=== PATIENT | male | born 2000 | race Native Hawaiian/Other Pacific Islander ===

== ENCOUNTER 2023-02-10 09:14 | Outpatient (AMB) | payer OTHER, SELFPAY ==
--- NOTE | 2023-02-10 09:36 | AM.OFFWIN_ITS ---
Intake Vital Signs 02/10/23 09:38 BP 120/80 Blood Pressure Location Lt brachial Position Sitting Pulse 76 Pulse Source Pulse Oximeter Temp 97.5 F Temp Source Temporal Artery Scan Pulse Oximetry (%) 97 Oxygen Delivery Method Room Air Intake Visit Reasons: EP, Labs (titer) Intake Note: Patient here because he hasnt been to a doctor in awhile and would like to get some basic labs done. Patient Tobacco Use Status: Never used Tobacco Allergies No Known Allergies Allergy (Unverified 02/10/23 09:57) Medication List - Last Reconciled 02/10/23 by Dave Persaud MD No Known Home Meds Do you need a note to return to daycare/school/sports/work: No HPI EP, Labs (titer) HPI Details 22-year-old male presents to the office for a sick visit. 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 He wants to check himself for diabetes as that would disqualify him from flying school. He is not able to wait for an appointment with his primary care physician, it has been scheduled in June. He is requesting routine blood work to screen for diabetes. [facility] Social History Patient Tobacco Use Status: Never used Tobacco Physical Exam Vital Signs: Last Vital Signs Temp 97.5 F 02/10/23 09:38 Pulse 76 02/10/23 09:38 BP 120/80 02/10/23 09:38 Pulse Ox 97 02/10/23 09:38 Oxygen Delivery Method Room Air 02/10/23 09:38 Const General: cooperative and healthy appearing Nutritional Appearance: well nourished Orientation/consciousness: patient oriented x3 Limitations: no limitations HEENT Head: Yes normal to inspection Eyes General: appearance normal, both eyes and all related structures Neck Neck: Yes normal visual inspection Chest Chest palpation & inspection: normal palpation of entire chest wall Resp Effort & Inspection: normal respiratory effort Neuro General: patient oriented x3 Assessment & Plan Assessment & Plan (1) Familial hypercholesterolemia: Code(s): E78.01 - Familial hypercholesterolemia Plan: Blood work has been ordered. Will call with results. Orders: Orders Basic Metabolic Panel Today E78.01 - Familial hypercholesterolemia Lipid Panel Today E78.01 - Familial hypercholesterolemia Liver Panel Today E78.01 - Familial hypercholesterolemia Thyroid Stimulating Hormone Today E78.01 - Familial hypercholesterolemia Complete Blood Count no Diff Today E78.01 - Familial hypercholesterolemia UA and rflx microscopic Today E78.01 - Familial hypercholesterolemia Coding Level of Care Code New Pt Level 3 (00762) Diagnoses Familial hypercholesterolemia E78.01
[2023-02-10 09:38] VITALS: BP 120/80; PULSE 76; TEMP 36.4; O2SAT 97
== END 2023-02-10 09:56 | disposition home or self-care (01) ==
PROVIDERS: PCP Nurse Practitioner Family; Visit Provider Internal Medicine
DX: E78.01 Familial hypercholesterolemia (principal)
CPT/HCPCS: 99203

== ENCOUNTER 2023-02-10 09:54 | Outpatient (REF) | payer OTHER, SELFPAY ==
[2023-02-10 14:45] LABS: Hematocrit 47.5 % (42.0-52.0); Hemoglobin 14.8 g/dl (14.0-18.0); Mean Corpuscular HGB Conc 31.2 g/dl (31.0-36.0); Mean Corpuscular Hemoglobin 26.1 pg (27.0-33.0); Mean Corpuscular Volume 83.9 fL (80.0-98.0); Mean Platelet Volume 10.3 fL (9.4-12.4); Platelet Count 307 X10*3/uL (160-400); Red Blood Count 5.66 X10*6/uL (4.60-5.80); Red Cell Distribution Width 13.8 % (11.0-16.0); White Blood Count 7.5 X10*3/uL (4.8-10.8)
[2023-02-10 15:30] LABS: Appearance Urine Clear; Color Urine Yellow; Glucose Urine UA Negative (Negative); Leukocyte Esterase Urine Negative (Negative); Nitrite Urine Negative (Negative); Urine Blood Negative (Negative); Urine Ketones Negative (Negative); Urine Protein Negative (Neg-Trace)
[2023-02-10 15:31] LABS: Alanine Aminotransferase 18 U/L (0-40); Albumin Level 4.4 g/dL (3.5-5.0); Alkaline Phosphatase 59 U/L (39-117); Anion Gap 10 (12-20); Aspartate Amino Transferase 18 U/L (5-37); Bilirubin Direct 0.3 mg/dL (0.0-0.5); Bilirubin Total 0.8 mg/dL (0.0-1.0); Blood Urea Nitrogen 13 mg/dL (9-16); Calcium 9.8 mg/dL (8.4-10.2); Carbon Dioxide 27 mmol/L (22-29); Chloride 105 mmol/L (96-108); Cholesterol 242 mg/dL; Estimated Glomerular Filt Rate > 60; Glucose Random 74 mg/dL (60-115); HDL Cholesterol 37 mg/dL; LDL Cholesterol Calculated 187 mg/dl; Potassium 4.3 mmol/L (3.3-5.1); Sodium 138 mmol/L (135-145); Thyroid Stimulating Hormone 1.04 uIU/mL (0.32-4.0); Total Protein 8.1 g/dL (6.5-8.0); Triglycerides 94 mg/dL
== END 2023-02-10 09:55 | disposition home or self-care (01) ==
LOC: HO.HMGCLDS 09:54
PROVIDERS: PCP Nurse Practitioner Family; Visit Provider Internal Medicine
DX: E78.01 Familial hypercholesterolemia (principal)
CPT/HCPCS: 36415; 80048; 80061; 80076; 81003; 84443; 85027

== ENCOUNTER 2023-07-10 14:19 | Outpatient (AMB) | payer OTHER, SELFPAY ==
--- NOTE | 2023-07-10 14:34 | A.OFFPC_ITS ---
Vital Signs 07/10/23 14:36 Height 5 ft 8 in Weight 209 lb BMI 31.8 BP 130/86 Blood Pressure Location Rt brachial Position Sitting Pulse 85 Pulse Source Pulse Oximeter Pulse Oximetry (%) 98 Oxygen Delivery Method Room Air Intake Visit Reasons: New patient-Requesting physical for school Allergies No Known Allergies Allergy (Unverified 07/10/23 14:36) Dental Screening Dental Screen Date: 07/10/23 Did you have a dental visit in the last 12 months?: No Did you have a dental problem in the last 6 months where you did not have access to dental care?: No Was dental information given to patient?: Yes HPI New patient-Requesting physical for school HPI Details New pt is here for a PE. Will order labs. [facility] Family History Other Family history of mental disorder Social History Housing: House Patient Tobacco Use Status: Never used Tobacco e-Cigarette/Vaping Use: Never Used service: No Current occupational status: employed Current occupational exposures/hazards: No Cognitive needs: No Hearing needs: No Vision needs: No Questionnaire PHQ-9 Over the last 2 weeks, how often have you been bothered by any of the following problems? 1. Little interest or pleasure in doing things: not at all 2. Feeling down, depressed, or hopeless: not at all 3. Trouble falling or staying asleep, or sleeping too much: not at all 4. Feeling tired or having little energy: not at all 5. Poor appetite or overeating: not at all 6. Feeling bad about yourself - or that you are a failure or have let yourself or your family down: several days 7. Trouble concentrating on things, such as reading the newspaper or watching television: not at all 8. Moving or speaking so slowly that other people could have noticed. Or the opposite - being so fidgety or restless that you have been moving around a lot more than usual: not at all 9. Thoughts that you would be better off or of hurting yourself in some way: not at all Total score: 1 Depression Screening Interpretation: Negative Depression Screening Done: Yes 13464 - PHQ-9 Billing: Yes Source: Developed by Drs. Deandre Ordoñez, Marie BRonald Mcallister and colleagues, with an educational italo from [employer]. Thrive Questionnaire Date Thrive assessed: 07/10/23 I am a: Patient What is your living situation today?: I have a steady place to live Within the past 12 months, did the food you bought not last and you didn't have the money to get more?: Never true Within the past 12 months, did you worry whether your food would run out before you got money to buy more?: Never true Do you have trouble paying for medicines?: No Do you have trouble getting transportation to medical appointments?: No Do you have trouble paying your heating and electricity bill?: No Do you have trouble taking care of your child, family member or friend?: No Do you have trouble with day-to-day activities such as bathing, preparing meals, shopping, managing finances, etc.?: No Are you currently unemployed and looking for a job?: No Are you interested in more education?: Yes Currently or been in a relationship where the following occur: no concerns reported AUDIT C Alcohol Use Questionnaire (AUDIT-C) 1. How often do you have a drink containing alcohol?: Monthly or less 2. How many drinks containing alcohol do you have on a typical day when you are drinking?: 1 or 2 3. How often do you have six or more drinks on one occasion?: Never Total Score: 1 Score Reviewed/Action Taken: No CHOCO-7 AMB Questionnaire CHOCO-7 Date CHOCO - 7 assessed: 07/10/23 Feeling nervous, anxious, or on edge: 1 = Several days Not being able to stop or control worryin = Not at all Worrying too much about different things: 0 = Not at all Trouble relaxin = Not at all Being so restless that it is hard to sit still: 0 = Not at all Becoming easily annoyed or irritable: 0 = Not at all Feeling afraid as if something awful might happen: 0 = Not at all Total CHOCO-7 score (0-4 normal; 5-9 mild; 10-14 moderate; 15-21 severe): 1 Source: Developed by Drs. Deandre Ordoñez, Ronald Medina and colleagues, with an educational italo from [employer]. CHOCO-7 Assessment Billing CHOCO-7 Assessment Tool: CHOCO-7 Assessment 62894 Review of Systems Const Denies chills and Denies fever(s) Eyes Denies blurry vision ENT Denies vertigo, Denies dizziness and Denies sore throat Card Denies chest pain at rest, Denies chest pain with activity, Denies diaphoresis, Denies dyspnea and Denies dyspnea on exertion Resp Denies cough, Denies dyspnea, Denies dyspnea on exertion and Denies wheezing GI Denies abdominal pain, Denies melena, Denies hematochezia, Denies constipation, Denies diarrhea and Denies loose stools Denies hematuria Musc Denies numbness and Denies tingling Skin/Breast Denies lesions Neuro Denies vertigo, Denies dizziness, Denies numbness and Denies tingling Psych Denies anxiety, Denies depression, Denies homicidal ideation, Denies suicidal ideation and Denies other (substance abuse) Aller/Immun Denies wheezing Physical exam (Primary Care) Vital Signs: Last Vital Signs Pulse 85 07/10/23 14:36 BP 130/86 07/10/23 14:36 Pulse Ox 98 07/10/23 14:36 Oxygen Delivery Method Room Air 07/10/23 14:36 BMI result Body Mass Index 31.8 Tobacco/Smoking Status: Tobacco use Status Patient Tobacco Use Status Never used Tobacco 07/10/23 14:35 e-Cigarette/Vaping Use Never Used 07/10/23 14:40 PHQ-9: PHQ-9 Score PHQ-9: Total score 1 07/10/23 15:43 Depression Screening Interpretation: Negative Thrive Assessment: Date of Thrive Assessment Date Thrive assessed 07/10/23 07/10/23 15:43 Currently or been in a relationship where the following occur: no concerns reported Const General: cooperative Nutritional Appearance: obese Orientation/consciousness: patient oriented x3 HENMT Head: Yes normal to inspection, Yes normocephalic and Yes atraumatic Ears: TM's normal bilaterally Eyes General: appearance normal, both eyes and all related structures Alignment and Position: alignment normal and position normal Neck Neck: Yes normal visual inspection and Yes no lymphadenopathy Thyroid: Thyroid normal Resp Effort & Inspection: normal respiratory effort Auscultation: clear to auscultation bilaterally Cardio Rate: regular rate Rhythm: regular rhythm Heart sounds: S1 normal heart sound present, S2 normal heart sound present and no murmurs GI Palpation (GI): Soft to palpation and nontender Auscultation: normal bowel sounds Male General Exam: Yes normal external exam Penis: normal penis Scrotum: scrotum normal, testes descended bilaterally and no inguinal hernias Testes: no testicular mass Skin Other: acanthosis nigricans to neck Rashes: no rashes Neuro General: patient oriented x3, moves all extremities, no focal motor deficits and deep tendon reflexes 2+ bilaterally Romberg Test: Negative Psych Appearance: grossly normal Mental Status: mental status grossly normal Speech and movement: Normal speech and movement present Affect: normal affect Attitude: cooperative Thought process: Normal thought process present Thought content: Normal thought content present Insight: Good insight present (Psych) Judgement: Good judgement present (Psych) Office Procedures Flu Questionnaire Does the patient have a severe egg allergy?: No Does the patient have severe life threatening allergies?: No Does the patient have a fever or illness today?: No Has the patient ever had Guillain-[place] Syndrome?: No Has the patient ever had any past reaction to a flu shot?: No Immunizations flu vacc [id number] 6mos up(PF) 60 mcg(15 mcgx4)/0.5 mL IM syringe Performing Provider: AMERICA Smalls Performing Location: [facility] Administered by: NELI Patel on 07/10/23 15:44 Dose Route Admin Location Dispensed Lot Number Expiration Date [employer] 0.5 mL IM Left Deltoid 0.5 mL [id number] 01/21/24 [id number] [employer] VIS Given Date VIS Provided VIS Publication Date 07/10/23 Single Vaccine 21 Eligibility Eligibility Date Funding Source Not [facility] Eligible 07/10/23 Private Assessment and Plan Assessment & Plan (1) Physical exam: Code(s): Z00.00 - Encounter for general adult medical examination without abnormal findings Plan: Labs ordered Plan The patient agreed to the use of a medical affairs manager for this encounter. Scribed for AMERICA Martinez by darian Caicedo scribe, on 07/10/2023 at 15:15 EST. Orders: Orders TSH reflex Free T4 Today Z00.00 - Encounter for general adult medical examinat ion without abnormal findings Lipid Panel Today Z00.00 - Encounter for general adult medical examination without abnormal findings Complete Blood Count Auto Diff Today Z00.00 - Encounter for general adult medical examination without abnormal findings Comprehensive [place]. Panel Fast Today Z00.00 - Encounter for general adult medical examination without abnormal findings UA CC w/rflx Micro + Cult Today Z00.00 - Encounter for general adult medical examination without abnormal findings Influenza [id number] Immunization Today Z23 - Encounter for immunization Coding Level of Care Code New Pt Prev Care 18-39yr(67239 Diagnoses Physical exam Z00.00 Additional Codes CHOCO-7 Assessment Billing - CHOCO-7 Assessment Tool: CHOCO-7 Assessment 75765 ([id number])
[2023-07-10 14:36] VITALS: BP 130/86; PULSE 85; O2SAT 98; BMI 31.8
== END 2023-07-10 15:32 | disposition home or self-care (01) ==
PROVIDERS: PCP Nurse Practitioner Family; Visit Provider Nurse Practitioner Family
DX: Z00.00 Encounter for general adult medical examination without abnormal findings (principal); Z23 Encounter for immunization
CPT/HCPCS: 90471; 90686; 99385

== ENCOUNTER 2023-07-13 10:29 | Outpatient (REF) | payer OTHER, SELFPAY ==
[2023-07-13 13:22] LABS: MANUAL DIFF FLAG NO
[2023-07-13 13:28] LABS: Appearance Urine Clear; Color Urine Yellow; Glucose Urine UA Negative (Negative); Leukocyte Esterase Urine Negative (Negative); Nitrite Urine Negative (Negative); Urine Blood Negative (Negative); Urine Ketones Negative (Negative); Urine Protein Negative (Neg-Trace)
[2023-07-13 13:37] LABS: Basophils Absolute Auto 0.1 X10*3/uL (0.0-0.2); Basophils Percent Auto 0.7 % (0-2); Eosinophils Absolute Auto 0.2 X10*3/uL (0.0-0.4); Eosinophils Percent Auto 2.8 % (0-4); Hematocrit 45.9 % (42.0-52.0); Hemoglobin 14.5 g/dl (14.0-18.0); Imm Gran Abs Auto 0.03 X10*3/uL (0.00-0.03); Imm Gran Pct Auto 0.3 % (0.0-0.4); Lymphocytes Absolute Auto 2.9 X10*3/uL (1.2-4.9); Lymphocytes Percent Auto 33.3 % (20-40); Mean Corpuscular HGB Conc 31.6 g/dl (31.0-36.0); Mean Corpuscular Hemoglobin 26.8 pg (27.0-33.0); Mean Corpuscular Volume 84.7 fL (80.0-98.0); Mean Platelet Volume 10.8 fL (9.4-12.4); Monocytes Absolute Auto 0.7 X10*3/uL (0.1-1.2); Monocytes Percent Auto 7.6 % (2-11); Neutrophils Absolute Auto 4.8 x10*3/uL (2.0-8.3); Neutrophils Percent Auto 55.3 % (45-73); Platelet Count 330 X10*3/uL (160-400); Red Blood Count 5.42 X10*6/uL (4.60-5.80); White Blood Count 8.7 X10*3/uL (4.8-10.8)
[2023-07-13 14:05] LABS: Alanine Aminotransferase 17 U/L (0-40); Albumin Level 4.3 g/dL (3.5-5.0); Alkaline Phosphatase 48 U/L (39-117); Anion Gap 13 (12-20); Aspartate Amino Transferase 18 U/L (5-37); Bilirubin Total 0.6 mg/dL (0.0-1.0); Blood Urea Nitrogen 12 mg/dL (9-16); Calcium 9.5 mg/dL (8.4-10.2); Carbon Dioxide 26 mmol/L (22-29); Chloride 104 mmol/L (96-108); Cholesterol 222 mg/dL (<200); Estimated Glomerular Filt Rate > 60; Glucose Fasting 76 mg/dL (60-99); HDL Cholesterol 44 mg/dL (>40); LDL Cholesterol Calculated 165 mg/dL (<100); Sodium 139 mmol/L (135-145); Total Protein 7.8 g/dL (6.5-8.0); Triglycerides 68 mg/dL (<150)
== END 2023-07-13 10:30 | disposition home or self-care (01) ==
LOC: HO.HMGCLDS 10:29
PROVIDERS: PCP Nurse Practitioner Family; Visit Provider Nurse Practitioner Family
DX: Z00.00 Encounter for general adult medical examination without abnormal findings (principal)
CPT/HCPCS: 36415; 80053; 80061; 81003; 84443; 85025

== ENCOUNTER 2023-08-02 09:28 | Outpatient (AMB) | payer OTHER, SELFPAY ==
[2023-08-02 10:32] VITALS: BP 120/70; PULSE 96; TEMP 36.4; O2SAT 98; BMI 32.2
--- NOTE | 2023-08-02 10:32 | MHC.OFFWIV ---
Intake Vital Signs 08/02/23 10:32 Height 5 ft 8 in Weight 212 lb BMI 32.2 BP 120/70 Blood Pressure Location Lt brachial Position Sitting Pulse 96 Pulse Source Pulse Oximeter Temp 97.6 F Temp Source Temporal Artery Scan Pulse Oximetry (%) 98 Oxygen Delivery Method Room Air Intake Visit Reasons: EP fever sore throat congestion etc [id number] Intake Note: pt is here today for sore throat congestion started 2 days ago Patient Tobacco Use Status: Never used Tobacco Allergies No Known Allergies Allergy (Verified 08/02/23 10:57) Medication List - Last Reconciled 08/02/23 by Dave Persaud MD No Known Home Meds Do you need a note to return to daycare/school/sports/work: Yes HPI EP fever sore throat congestion etc [id number] HPI Details 22-year-old male presents to the office for a sick visit. Patient is reporting symptoms of sinus congestion, postnasal drip, sore throat, wheezing and fatigue symptoms for the past few days. [facility] Family History Other Family history of mental disorder Social History Housing: House Patient Tobacco Use Status: Never used Tobacco e-Cigarette/Vaping Use: Never Used service: No Current occupational status: employed Current occupational exposures/hazards: No Cognitive needs: No Hearing needs: No Vision needs: No Physical Exam Vital Signs: Last Vital Signs Temp 97.6 F 08/02/23 10:32 Pulse 96 08/02/23 10:32 BP 120/70 08/02/23 10:32 Pulse Ox 98 08/02/23 10:32 Oxygen Delivery Method Room Air 08/02/23 10:32 BMI result Body Mass Index 32.2 Const General: cooperative and healthy appearing Nutritional Appearance: well nourished Orientation/consciousness: patient oriented x3 Limitations: no limitations HEENT Head: Yes normal to inspection Eyes General: appearance normal, both eyes and all related structures Neck Neck: Yes normal visual inspection Chest Chest palpation & inspection: normal palpation of entire chest wall Resp Effort & Inspection: normal respiratory effort Neuro General: patient oriented x3 Assessment & Plan Assessment & Plan (1) Upper respiratory tract infection: Code(s): J06.9 - Acute upper respiratory infection, unspecified Plan: Increase fluid intake. Tylenol for aches and pains. If symptoms worsen, follow-up here for a recheck. Self-limiting illness. Coding Level of Care Code Est Pt Level 3 (60116) Diagnoses Upper respiratory tract infection J06.9
== END 2023-08-02 11:54 | disposition home or self-care (01) ==
PROVIDERS: PCP Nurse Practitioner Family; Visit Provider Internal Medicine
DX: J06.9 Acute upper respiratory infection, unspecified (principal)
CPT/HCPCS: 99213

== ENCOUNTER → 2024-01-10 11:49 | Outpatient (BNVA) | payer SELFPAY | PROVIDERS: PCP Nurse Practitioner Family; Visit Provider Registered Nurse | DX: Z02.79 Encounter for issue of other medical certificate (principal) ==

== ENCOUNTER 2024-07-11 15:34 | Outpatient (AMB) | payer OTHER, SELFPAY ==
--- NOTE | 2024-07-11 16:15 | A.OFFPC_ITS ---
Vital Signs 07/11/24 16:17 Height 5 ft 8 in Weight 226 lb BMI 34.4 BP 122/74 Blood Pressure Location Rt brachial Position Sitting Pulse 73 Pulse Source Pulse Oximeter Pulse Oximetry (%) 98 Intake Visit Reasons: PE Intake Note: pt is here for PE Allergies No Known Allergies Allergy (Verified 07/11/24 16:46) Medication List - Last Reconciled 07/11/24 by AMERICA Smalls No Known Home Meds Tobacco use date assessed: 07/11/24 Dental Screening Dental Screen Date: 07/11/24 Did you have a dental visit in the last 12 months?: Yes Did you have a dental problem in the last 6 months where you did not have access to dental care?: No Was dental information given to patient?: Patient has dentist HPI HPI Comments History of Present Illness Details Pt is here for a PE. 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 1. Little interest or pleasure in doing things: not at all 2. Feeling down, depressed, or hopeless: not at all 3. Trouble falling or staying asleep, or sleeping too much: several days 4. Feeling tired or having little energy: not at all 5. Poor appetite or overeating: not at all 6. Feeling bad about yourself - or that you are a failure or have let yourself or your family down: not at all 7. Trouble concentrating on things, such as reading the newspaper or watching television: not at all 8. Moving or speaking so slowly that other people could have noticed. Or the opposite - being so fidgety or restless that you have been moving around a lot more than usual: not at all 9. Thoughts that you would be better off or of hurting yourself in some way: not at all Total score: 1 Depression Screening Interpretation: Negative Depression Screening Done: Yes 69498 - PHQ-9 Billing: Yes Source: Developed by Drs. Deandre Ordoñez, Marie Ferrara, Ronald Welch and colleagues, with an educational italo from [employer]. Thrive Questionnaire Date Thrive assessed: 07/11/24 I am a: Patient What is your living situation today?: I have a steady place to live Within the past 12 months, did the food you bought not last and you didn't have the money to get more?: Never true Within the past 12 months, did you worry whether your food would run out before you got money to buy more?: Never true Do you have trouble paying for medicines?: No Do you have trouble getting transportation to medical appointments?: No Do you have trouble paying your heating and electricity bill?: No Do you have trouble taking care of your child, family member or friend?: No Do you have trouble with day-to-day activities such as bathing, preparing meals, shopping, managing finances, etc.?: No Are you currently unemployed and looking for a job?: No Are you interested in more education?: Yes Please select the resources that you would like help with: None Currently or been in a relationship where the following occur: No concerns reported THRIVE Score: 0 AUDIT C Alcohol Use Questionnaire (AUDIT-C) 1. How often do you have a drink containing alcohol?: Monthly or less 2. How many drinks containing alcohol do you have on a typical day when you are drinking?: 1 or 2 3. How often do you have six or more drinks on one occasion?: Less than monthly Total Score: 2 Score Reviewed/Action Taken: Yes CHOCO-7 AMB Questionnaire CHOCO-7 Date CHOCO - 7 assessed: 07/11/24 Feeling nervous, anxious, or on edge: 0 = Not at all Not being able to stop or control worryin = Not at all Worrying too much about different things: 0 = Not at all Trouble relaxin = Not at all Being so restless that it is hard to sit still: 0 = Not at all Becoming easily annoyed or irritable: 1 = Several days Feeling afraid as if something awful might happen: 0 = Not at all Total CHOCO-7 score (0-4 normal; 5-9 mild; 10-14 moderate; 15-21 severe): 1 Source: Developed by Drs. Deandre Ordoñez, Marie Ferrara, Ronald Welch and colleagues, with an educational italo from [employer]. CHOCO-7 Assessment Billing CHOCO-7 Assessment Tool: CHOCO-7 Assessment 14771 Review of Systems Const Denies chills and Denies fever(s) Eyes Denies blurry vision ENT Denies vertigo, Denies dizziness and Denies sore throat Card Denies chest pain at rest, Denies chest pain with activity, Denies diaphoresis, Denies dyspnea and Denies dyspnea on exertion Resp Denies cough, Denies dyspnea, Denies dyspnea on exertion and Denies wheezing GI Denies abdominal pain, Denies melena, Denies hematochezia, Denies constipation, Denies diarrhea and Denies loose stools Denies hematuria Musc Denies numbness and Denies tingling Skin/Breast Reports lesions (reports intermittent cysts (axillary/groin)) Neuro Denies vertigo, Denies dizziness, Denies numbness and Denies tingling Psych Denies anxiety, Denies depression, Denies homicidal ideation, Denies suicidal ideation and Denies other (substance abuse) Aller/Immun Denies wheezing Physical exam (Primary Care) Vital Signs: Last Vital Signs Pulse 73 07/11/24 16:17 BP 122/74 07/11/24 16:17 Pulse Ox 98 07/11/24 16:17 BMI result Body Mass Index 34.4 Tobacco/Smoking Status: Tobacco use Status Tobacco use date assessed 07/11/24 07/11/24 16:21 Patient Tobacco Use Status Never used Tobacco 07/11/24 16:16 e-Cigarette/Vaping Use Never Used 07/11/24 16:16 PHQ-9: PHQ-9 Score PHQ-9: Total score 1 07/11/24 16:55 Depression Screening Interpretation: Negative Thrive Assessment: Date of Thrive Assessment Date Thrive assessed 07/11/24 07/11/24 16:21 Currently or been in a relationship where the following occur: No concerns reported Const General: cooperative Nutritional Appearance: well nourished Orientation/consciousness: patient oriented x3 HENMT Head: Yes normal to inspection, Yes normocephalic and Yes atraumatic Ears: TM normal on the right and TM normal on the left Eyes General: appearance normal, both eyes and all related structures Alignment and Position: alignment normal and position normal Neck Neck: Yes normal visual inspection, Yes no lymphadenopathy and Yes supple Resp Effort & Inspection: normal respiratory effort Auscultation: clear to auscultation bilaterally Cardio Rate: regular rate Rhythm: regular rhythm Heart sounds: S1 normal heart sound present, S2 normal heart sound present and no murmurs GI Palpation (GI): Soft to palpation and nontender Auscultation: normal bowel sounds Male General Exam: Yes normal external exam Penis: normal penis Scrotum: scrotum normal, testes descended bilaterally and no inguinal hernias Testes: no testicular mass Skin Rashes: no rashes Neuro General: patient oriented x3, moves all extremities, no focal motor deficits and deep tendon reflexes 2+ bilaterally Romberg Test: Negative Extrem Right lower extremity: no edema Left lower extremity: no edema Psych Affect: normal affect Attitude: cooperative Thought process: Normal thought process present Office Procedures Flu Questionnaire Does the patient have a severe egg allergy?: No Does the patient have severe life threatening allergies?: No Does the patient have a fever or illness today?: No Has the patient ever had Guillain-[place] Syndrome?: No Has the patient ever had any past reaction to a flu shot?: No Immunizations Fluarix Triv [id number] (PF) 45 mcg (15 mcg x 3)/0.5 mL IM syringe Performing Provider: AMERICA Smalls Performing Location: [facility] Administered by: Travon Bowers CMA on 07/11/24 16:55 Dose Route Admin Location Dispensed Lot Number Expiration Date [facility] Cr[employer] 0.5 mL IM Left Deltoid 0.5 mL [id number] 01/20/25 [id number] [employer] VIS Given Date VIS Provided VIS Publication Date 07/11/24 Single Vaccine 21 Eligibility Eligibility Date Funding Source Not [facility] Eligible 07/11/24 Private Coding Level of Care Code Est Pt Prev Care 18-39y(84152) Diagnoses Physical exam Z00.00 Additional Codes CHOCO-7 Assessment Billing - CHOCO-7 Assessment Tool: CHOCO-7 Assessment 50176 ([id number]) PHQ-9 - 44622 - PHQ-9 Billing: Yes ([id number]) Assessment & Plan Assessment & Plan (1) Physical exam: Code(s): Z00.00 - Encounter for general adult medical examination without abnormal findings Category: Medical Plan . Orders: Orders Influenza [id number] Immunization Today Z23 - Encounter for immunization Complete Blood Count Auto Diff Today Z00.00 - Encounter for general adult medical examination without abnormal findings Comprehensive [place]. Panel Fast Today Z00.00 - Encounter for general adult medical examination without abnormal findings TSH reflex Free T4 Today Z00.00 - Encounter for general adult medical examination without abnormal findings UA CC w/rflx Micro + Cult Today Z00.00 - Encounter for general adult medical examination without abnormal findings Lipid Panel Today Z00.00 - Encounter for general adult medical examination without abnormal findings Medications: New doxycycline hyclate for cysts 100 mg PO BID 10 days 20 tabs 0RF
[2024-07-11 16:17] VITALS: BP 122/74; PULSE 73; O2SAT 98; BMI 34.4
== END 2024-07-11 17:03 | disposition home or self-care (01) ==
PROVIDERS: PCP Nurse Practitioner Family; Visit Provider Nurse Practitioner Family
DX: Z23 Encounter for immunization (principal); Z00.00 Encounter for general adult medical examination without abnormal findings

== ENCOUNTER → 2024-07-11 15:34 | Outpatient (BNVA) | payer OTHER, SELFPAY | PROVIDERS: PCP Nurse Practitioner Family; Visit Provider Nurse Practitioner Family | DX: Z00.00 Encounter for general adult medical examination without abnormal findings (principal) | CPT/HCPCS: 90471; 90656; 96127; 99395 ==

== ENCOUNTER 2024-07-13 07:27 | Outpatient (REF) | payer OTHER, SELFPAY ==
[2024-07-13 11:10] LABS: MANUAL DIFF FLAG NO
[2024-07-13 11:19] LABS: Basophils Absolute Auto 0.1 X10*3/uL (0.0-0.2); Basophils Percent Auto 0.6 % (0-2); Eosinophils Absolute Auto 0.3 X10*3/uL (0.0-0.4); Eosinophils Percent Auto 3.9 % (0-4); Hematocrit 46.3 % (42.0-52.0); Hemoglobin 14.9 g/dl (14.0-18.0); Imm Gran Abs Auto 0.02 X10*3/uL (0.00-0.03); Imm Gran Pct Auto 0.2 % (0.0-0.4); Lymphocytes Absolute Auto 2.9 X10*3/uL (1.2-4.9); Lymphocytes Percent Auto 33.4 % (20-40); Mean Corpuscular HGB Conc 32.2 g/dl (31.0-36.0); Mean Corpuscular Hemoglobin 26.7 pg (27.0-33.0); Mean Platelet Volume 10.4 fL (9.4-12.4); Monocytes Absolute Auto 0.6 X10*3/uL (0.1-1.2); Monocytes Percent Auto 6.6 % (2-11); Neutrophils Absolute Auto 4.8 x10*3/uL (2.0-8.3); Neutrophils Percent Auto 55.3 % (45-73); Platelet Count 336 X10*3/uL (160-400); Red Blood Count 5.58 X10*6/uL (4.60-5.80); Red Cell Distribution Width 14.1 % (11.0-16.0); White Blood Count 8.7 X10*3/uL (4.8-10.8)
[2024-07-13 11:20] LABS: Appearance Urine Clear; Color Urine Yellow; Glucose Urine UA Negative (Negative); Leukocyte Esterase Urine Negative (Negative); Nitrite Urine Negative (Negative); PH 5.5 (5.0-9.0); Specific Gravity - Urine 1.025 (1.005-1.025); Urine Blood Negative (Negative); Urine Ketones Negative (Negative); Urine Protein Negative (Neg-Trace)
[2024-07-13 11:37] LABS: Alanine Aminotransferase 40 U/L (0-40); Albumin Level 4.3 g/dL (3.5-5.0); Alkaline Phosphatase 51 U/L (39-117); Anion Gap 10 (12-20); Aspartate Amino Transferase 24 U/L (5-37); Bilirubin Total 0.5 mg/dL (0.0-1.0); Blood Urea Nitrogen 14 mg/dL (9-16); Calcium 9.3 mg/dL (8.4-10.2); Carbon Dioxide 25 mmol/L (22-29); Chloride 107 mmol/L (96-108); Cholesterol 254 mg/dL (<200); Estimated Glomerular Filt Rate > 60; Glucose Fasting 89 mg/dL (60-99); HDL Cholesterol 42 mg/dL (>40); LDL Cholesterol Calculated 184 mg/dL (<100); Potassium 4.2 mmol/L (3.3-5.1); Sodium 138 mmol/L (135-145); Total Protein 8.2 g/dL (6.5-8.0); Triglycerides 142 mg/dL (<150)
[2024-07-13 11:54] LABS: TSH reflex Free T4 1.92 uIU/mL (0.32-4.0)
== END 2024-07-13 07:28 | disposition home or self-care (01) ==
LOC: HO.HMGCLDS 07:27
PROVIDERS: PCP Nurse Practitioner Family; Visit Provider Nurse Practitioner Family
DX: Z00.00 Encounter for general adult medical examination without abnormal findings (principal)
CPT/HCPCS: 36415; 80053; 80061; 81003; 84443; 85025

== ENCOUNTER 2024-09-20 10:20 | Outpatient (REF) | payer OTHER, SELFPAY ==
--- OUTSIDE RECORDS SUMMARY | 2024-09-20 11:35 | XMS_ITS | Encounter Summary ---
Author Organization [facility] Address [address] [place] [address] Phone Care Team Providers Care Oracle Apex Developer Name Role Phone Laura Davies MD Primary Care Provider [phone] Encounter Details Date Type Department Care Team (Late st Contact Info) Description 10/20/2014 Documentation [facility] [place] Family Medicine [address] [place] [address] Family Medicine, Physician [address], [place] 853751 Social History Tobacco Use Types Packs/Day Years Used Date Smoking Tobacco: Never Assessed Sex and Gender Information Value Date Recorded Sex Assigned at Not on file Legal Sex Male 5:17 PM EDT Gender Identity Male 11/09/2020 12:27 PM EDT Sexual Orientation Straight 11/09/2020 2: 58 PM EDT documented as of this encounter Plan of Treatment Not on file documented as of this encounter Visit Diagnoses Not on filedocumented in this encounter Care Teams Oracle Apex Developer Relationship Specialty Start Date End Date Laura Davies MD [address] [place] [address] PCP - General Pediatrics 12/08/19 01/31/23 documented as of this encounter
--- OUTSIDE RECORDS SUMMARY | 2024-09-20 11:35 | XMS_ITS | Encounter Summary ---
Author Organization [facility] Address [address] [place] [address] Phone Care Team Providers Care Oil Heater Installer Name Role Phone Laura Davies MD Primary Care Provider [phone] Encounter Details Date Type Department Care Team (Late st Contact Info) Description 07/11/2012 Documentation [facility] [place] [address] [place] [address] Family Medicine, Physician [address] [place], [place] 396231 Social History Tobacco Use Types Packs/Day Years [...] on filedocumented in this encounter Care Teams Oil Heater Installer Relationship Specialty Start Date End Date Laura Davies MD [address] [place] [address] PCP - General Pediatrics 12/08/19 01/31/23 documented as of this encounter
--- OUTSIDE RECORDS SUMMARY | 2024-09-20 11:35 | XMS_ITS | Clinical Summary ---
Author Organization [facility] Address [address] [place] [address] Phone Care Team Providers Care Feller Operator Name Role Phone Unavailable Primary Care Provider Unavailabl e Allergies Active Allergy Reactions Criticality Noted Date Comments Cashew Nut Oil 11/04/2019 Itchy throat Medications EPINEPHrine (EPIPEN 2-ELIE) 0.3 MG/0.3ML injection syringeIndicatio ns:Nut allergy Inject into muscle immediately for signs of anaphylaxis AND call 911. Repeat if symptoms worsen/recur or if uncertain medicine was given 4 Syringe 1 9 Active [facility] IBUPROFEN PO Take by mouth. Active ProAir HFA 108 (90 Base) MCG/ACT inhalerIndicatio ns:Mild intermittent asthma without complication INHALE 2 PUFFS EVERY 4 (FOUR) HOURS NEEDED FOR WHEEZING OR SHORTNESS OF BREATH. 8 g 2 Active Active Problems No known active problems Resolved Problems Problem Noted Date Diagnosed Date Resolved Date Need for case management follow-up 11/04/2019 11/26/2020 Overview (11/09/2020): 11/04/2019 : Jed who is 18yr was seen today during the covid 19 pandemic. When the pandemic subsides, he needs A Physical exam to follow up on virtual visit done today, Age appropriate vital signs, Age appropriate, 18yr, immunizations, Age appropriate Vision +/- hearing screening, CBC, GC/Chlamydia screening, Lipid screening, HgA1C Jed is a new patient to me, and I will need to see him in person for a physical exam when the covid 19 pandemic subsides. Also needs eval of lump on hand - following an injury > 1 year ago 11/09/2020 : Jed who is 19yr was seen today during the covid 19 pandemic. When the pandemic subsides, he needs Age appropriate vital signs, Age appropriate, 19yr, immunizations, Age appropriate Vision +/- hearing screening Assessment & Plan (11/26/2020 1:59 PM EDT): Virtual well visit done on 11/09/2020 is completed today. He had a complete physical, vital signs, vision screen and routine labs done Mild intermittent asthma without complication 11/03/19 10 11/09/2020 Assessment & Plan (11/04/2019 2:33 PM EDT): No issues in years but requesting refill on albuterol Immunizations Immunization Administration Dates Next Due COVID-19 Pfizer, monovalent, 12+ years 1,10/24/2020 DTaP 5 09/02/2003, 2,12/14/2001,04/24 H1N1 06/03/2009 HPV Vaccine 9 Valent 04/14/2015 HPV, Quadrivalent 03/04/2014,05/17/2012 Hep A, ped/adol 09/16/2015,12/27/2010 Hep B, ped/adol 12/14/2001,01/17/2000,1999 Hib (HbOC) 12/14/2001,04/24/2000 IPV 09/10/2004, 4,12/14/2001,04/24 Influenza Split 05/08/2012,04/14/2011 Influenza, injectable, quadr ivalent, preservative free 12/14/2020,05/03/2019,04/04/2017,03/24,04/14/2015 Influenza, injectable, trivalent 06/03/2009 MMR 09/10/2004,12/14/2001 Meningococcal B Trumenba 12/14/2020,12/25/2019 Meningococcal Conj (Menactra) MCV4P 03/24/2016,1 Pneumococcal Polysaccharide 12/25/2019 Td (adult) (MBL), 2 Lf tetan us toxoid, PF, adsorbed 09/10/2004 Tdap 04/19/2012 Varicella 06/03/2009,01/25/2002 Family History Medical History Relation Name Comments Diabetes Father Heart attack Father Hyperlipidemia Father Heart attack Maternal Grandfather Dementia Maternal Grandmother Heart attack Paternal Grandfather Diabetes Paternal Grandmother Ovarian cancer Paternal Grandmother Relation Name Status Comments Brother Alive Brother: Alive and well Father Alive Father: Diabete s mellitus Maternal Grandfather Materna l grandfather: Sudden /SD under age 55, Maternal Grandmother Materna l grandmother: Alive and well Mother Alive Mother: Alive a nd well Other No family histo ry of *CVA/Stroke, Family history of *Dental caries, Family history of *Heart Disease Paternal Grandfather Paterna l grandfather: Diabetes mellitus, Sudden /SD under age 55 Paternal Grandmother Paterna l grandmother: Diabetes mellitus Sister Alive Sister: Alive a nd well Social History Tobacco Use Types Packs/Day Years Used Date Smoking Tobacco: Never Comments:Never smoker Hunger/Food Answer Date Recorded In the last 12 months, did y ou or your family ever eat less than you felt you should because there wasn't enough money for food? No 11/09/2020 Stable Housing Answer Date Recorded Are you worried that in the next 2 months you may not have stable housing? No 11/09/2020 Transportation Concerns Answer Date Rec orded In the last 12 months, have you or your family ever had to go without healthcare because you didn't have a way to get there? No 11/09/2020 Hazards in Home Answer Date Recorded Think about the place you li ve. Do you have problems with any of the following? Pests (mice or roaches), mold, no/not working smoke detectors, water leaks, no window guards. No 2020 Financing Utilities Answer Date Recorde d In the last 12 months, has t he electric, gas, oil, or water company threatened to shut off your services in your home? No 11/09/2020 Safety at Home Answer Date Recorded Are you or your family worried about feeling saf e in your home? No 11/09/2020 Outside Support Answer Date Recorded Do you feel that you need mo re support from other people or programs to help you care for yourself or your family? No 11/09/2020 Understanding Health Concerns Answer Da te Recorded Do you need help understandi ng your or your child's healthcare needs (diagnosis, medications, plan, etc.)? No 11/09/2020 Financing Health Concerns Answer Date R ecorded In the last 12 months, was t here a time when your child needed to see a doctor or get medications or supplies but could not because of cost? No 11/09/2020 Missing School or Work Answer Date Darrius rded Did you or your child miss s chool or work because of a health problem that could have been avoided? No 11/09/2020 Sex and Gender Information Value Date Recorded Sex Assigned at Not on file Legal Sex Male 5:17 PM EDT Gender Identity Male 11/09/2020 12:27 PM EDT Sexual Orientation Straight 11/09/2020 2: 58 PM EDT Last Filed Vital Signs Vital Sign Reading Time Taken Comments Blood Pressure 137/74 11/26/2020 1:58 PM EDT Pulse 100 11/26/2020 1:58 PM EDT Temperature 36.2 ??C (97.1 ??F) 11/26/2020 1:58 PM ED T Respiratory Rate - - Oxygen Saturation - - Inhaled Oxygen Concentration - - Weight 106 kg (233 lb) 11/26/2020 1:58 PM EDT Height 173.5 cm (5' 8.31 ) 11/26/2020 1:58 PM ED T Body Mass Index 35.11 11/26/2020 1:58 PM EDT Plan of Treatment Health Maintenance Due Date Last Done Comments DTaP,Tdap,and Td Vaccines (6 - Td or Tdap) 04/19/2022 04/19/2012, 09/10/2004, 09/02/2003, Additional history exists Influenza Vaccines (#1) 2024 12/15/19, 05/03/2019, 04/04/2017, Additional history exists COVID-19 Vaccine ( season) 2024 07/29/2021, 11/15/2020, 10/24/2020 HIB Vaccines Completed 12/14/2001, 04/24/2000 Hepatitis B Vaccines Completed 12/14/2001, 01/17/2000, 1999 IPV Vaccines Completed 09/10/2004, 08/24, 12/14/2001, Additional history exists MMR Vaccines Completed 09/10/2004, 12/14/2001 Varicella Vaccines Completed 06/03/2009, 01/25/2002 HPV Vaccines Completed 04/14/2015, 02/21, 05/17/2012 Hepatitis A Vaccines Completed 09/16/2015, 12/28/19 11 Meningococcal Vaccine Completed 03/24/2016, 012 Pneumococcal Vaccine Aged Out 12/25/2019 No long er eligible based on patient's age to complete this topic Men B Vaccine Completed 12/14/2020, 12/25/2019
--- OUTSIDE RECORDS SUMMARY | 2024-09-20 11:35 | XMS_ITS | Encounter Summary ---
Author Organization [facility] Address [address] [place] [address] Phone Care Team Providers Care Deli Cook Name Role Phone Laura Davies MD Primary Care Provider [phone] Encounter Details Date Type Department Care Team (Late st Contact Info) Description 09/05/2014 Documentation [facility] [place] Family Medicine [address] [place] [address] Family Medicine, Physician [address] [place], [place] 717681 Social History Tobacco Use Types Packs/Day Years [...] on filedocumented in this encounter Care Teams Deli Cook Relationship Specialty Start Date End Date Laura Davies MD [address] [place] [address] PCP - General Pediatrics 12/08/19 01/31/23 documented as of this encounter
--- OUTSIDE RECORDS SUMMARY | 2024-09-20 11:35 | XMS_ITS | Encounter Summary ---
Author Organization [facility] Address [address] [place] [address] Phone Care Team Providers Care Gunsmith Apprentice Name Role Phone Laura Davies MD Primary Care Provider [phone] Encounter Details Date Type Department Care Team (Late st Contact Info) Description 09/05/2012 Documentation [facility] [place] Family Medicine [address] [place] [address] Family Medicine, Physician [address] [place], [place] 593681 Social History Tobacco Use Types Packs/Day Years [...] on filedocumented in this encounter Care Teams Gunsmith Apprentice Relationship Specialty Start Date End Date Laura Davies MD [address] [place] [address] PCP - General Pediatrics 12/08/19 01/31/23 documented as of this encounter
--- OUTSIDE RECORDS SUMMARY | 2024-09-20 11:35 | XMS_ITS | Encounter Summary ---
Author Organization [facility] Address [address] [place] [address] Phone Care Team Providers Care Refrigeration Brazer/Solderer Name Role Phone Laura Davies MD Primary Care Provider [phone] Encounter Details Date Type Department Care Team (Late st Contact Info) Description 01/06/2011 Documentation [facility] [place] Medicine [address] [place] [address] Family Medicine, Physician [address] [place], [place] 057071 Social History Tobacco Use Types Packs/Day Years [...] on filedocumented in this encounter Care Teams Refrigeration Brazer/Solderer Relationship Specialty Start Date End Date Laura Davies MD [address] [place] [address] PCP - General Pediatrics 12/08/19 01/31/23 documented as of this encounter
--- OUTSIDE RECORDS SUMMARY | 2024-09-20 11:35 | XMS_ITS | Clinical Summary ---
Author Organization [facility] Address [address] [place] [address] Care Team Providers Care Plant Protection Supervisor Name Role Phone Unavailable Primary Care Provider Unavailabl e Allergies No known active allergies Medications Medication Sig Dispensed Refills Start Date End Date Status ibuprofen (MOTRIN) 600 MG tablet Take 1 tablet (600 mg total) by mouth 3 (three) times a day as needed for mild pain (pain). Take with food as this may upset your stomach 20 tablet 02/27/2021 Active lidocaine (PROZENA) 4 % patch Place 1 patch on the skin daily. Apply for 12 hours, remove for 12 hours 6 patch 02/27/2021 Active methocarbamol (ROBAXIN) 750 MG tablet Take 1 tablet (750 mg total) by mouth 4 times daily (every 6 hours) as needed for muscle spasms. Do not drink, drive or operate heavy machinery while taking this medication as it may make you drowsy 12 tablet 02/27/2021 Active Social History Tobacco Use Types Packs/Day Years Used Date Smoking Tobacco: Never Assessed Sex and Gender Information Value Date Recorded Sex Assigned at Not on file Gender Identity Not on file Sexual Orientation Not on file Last Filed Vital Signs Vital Sign Reading Time Taken Comments Blood Pressure 135/75 02/27/2021 12:17 PM EDT Pulse 92 02/27/2021 12:17 PM EDT Temperature 37.1 ??C (98.8 ??F) 02/27/2021 12:17 PM E DT Respiratory Rate 16 02/27/2021 12:17 PM EDT Oxygen Saturation 96% 02/27/2021 12:17 PM EDT Inhaled Oxygen Concentration - - Weight - - Height - - Body Mass Index - - Plan of Treatment Health Maintenance Due Date Last Done Comments Hepatitis C Virus Screening 1999 HIV Screening 12/19/2012 HPV Vaccines (1 - Male 3-dos e series) 12/19/2014 DTaP/Tdap/Td Vaccines (1 - Tdap) 12/19/2018 Hepatitis B Vaccines (1 of 3 - 19+ 3-dose series) 12/19/2018 Influenza Vaccine 02/22/2024 COVID-19 Vaccine (1 - 2023-2 5 season) 2024 Pneumococcal Vaccine: Pediat agbby (0-5 Years) and At-Risk Patients (6 to 49 Years) Aged Out No longer eligible b ased on patient's age to complete this topic
--- OUTSIDE RECORDS SUMMARY | 2024-09-20 11:35 | XMS_ITS | Encounter Summary ---
Author Organization [facility] Address [address] [place] [address] Phone Care Team Providers Care First Calender Worker Name Role Phone Laura Davies MD Primary Care Provider [phone] Encounter Details Date Type Department Care Team (Late st Contact Info) Description 03/10/2014 Documentation [facility] [place] Family Medicine [address] [place] [address] Family Medicine, Physician [address], [place] 608841 Social History Tobacco Use Types Packs/Day Years [...] on filedocumented in this encounter Care Teams First Calender Worker Relationship Specialty Start Date End Date Laura Davies MD [address] [place] [address] PCP - General Pediatrics 12/08/19 01/31/23 documented as of this encounter
--- OUTSIDE RECORDS SUMMARY | 2024-09-20 11:35 | XMS_ITS | Encounter Summary ---
Author Organization [facility] Address [address] [place] [address] Phone Care Team Providers Care Journeyman Electrician Pv Installer Name Role Phone Laura Davies MD Primary Care Provider [phone] Encounter Details Date Type Department Care Team (Late st Contact Info) Description 09/04/2014 Documentation [facility] [place] Family Medicine [address] [place] [address] Family Medicine, Physician [address] [place], [place] 189711 Social History Tobacco Use Types Packs/Day Years [...] on filedocumented in this encounter Care Teams Journeyman Electrician Pv Installer Relationship Specialty Start Date End Date Laura Davies MD [address] [place] [address] PCP - General Pediatrics 12/08/19 01/31/23 documented as of this encounter
--- OUTSIDE RECORDS SUMMARY | 2024-09-20 11:35 | XMS_ITS | Encounter Summary ---
Author Organization [facility] Address [address] [place] [address] Phone Care Team Providers Care Staff Counselor Name Role Phone Laura Davies MD Primary Care Provider [phone] Encounter Details Date Type Department Care Team (Late st Contact Info) Description 10/24/2016 Documentation [facility] [place] Family Medicine [address] [place] [address] Family Medicine, Physician [address] [place] [address] Social History Tobacco Use Types Packs/Day Years Used Date Smoking Tobacco: Never Comments:Never smoker Sex and Gender Information Value Date Recorded Sex Assigned at Not on file Legal Sex Male 5:17 PM EDT Gender Identity Male 11/09/2020 12:27 PM EDT Sexual Orientation Straight 11/09/2020 2: 58 PM EDT documented as of this encounter Plan of Treatment Not on file documented as of this encounter Visit Diagnoses Not on filedocumented in this encounter Care Teams Staff Counselor Relationship Specialty Start Date End Date Laura Davies MD [address] [place] [address] PCP - General Pediatrics 12/08/19 01/31/23 documented as of this encounter
--- OUTSIDE RECORDS SUMMARY | 2024-09-20 11:35 | XMS_ITS | Encounter Summary ---
Author Organization [facility] Address [address] [place] [address] Phone Care Team Providers Care Braid Pattern Setter Name Role Phone Laura Davies MD Primary Care Provider [phone] Encounter Details Date Type Department Care Team (Late st Contact Info) Description 09/10/2014 Documentation [facility] [place] Family Medicine [address] [place] [address] Family Medicine, Physician [address] [place], [place] 304031 Social History Tobacco Use Types Packs/Day Years [...] on filedocumented in this encounter Care Teams Braid Pattern Setter Relationship Specialty Start Date End Date Laura Davies MD [address] [place] [address] PCP - General Pediatrics 12/08/19 01/31/23 documented as of this encounter
--- OUTSIDE RECORDS SUMMARY | 2024-09-20 11:35 | XMS_ITS | Encounter Summary ---
Author Organization [facility] Address [address] [place] [address] Phone Care Team Providers Care Door Machine Operator Name Role Phone Laura Davies MD Primary Care Provider Encounter Details Date Type Department Care Team (Late st Contact Info) Description 03/09/2017 Conversion Encounter [facility] [place] [address] [place] [address] Social History Tobacco Use Types Packs/Day Years [...] on filedocumented in this encounter Care Teams Door Machine Operator Relationship Specialty Start Date End Date Laura Davies MD [address] [place] [address] PCP - General Pediatrics 12/08/19 01/31/23 documented as of this encounter
--- OUTSIDE RECORDS SUMMARY | 2024-09-20 11:35 | XMS_ITS | Encounter Summary ---
Author Organization [facility] Address [address] [place] [address] Phone Care Team Providers Care Quality Measurement Specialist Name Role Phone Laura Davies MD Primary Care Provider Encounter Details Date Type Department Care Team (Late st Contact Info) Description 11/30/2009 Documentation [facility] [place] Family Medicine [address] [place] [address] Family Medicine, Physician [address] [place], [place] 410541 Social History Tobacco Use Types Packs/Day Years [...] on filedocumented in this encounter Care Teams Quality Measurement Specialist Relationship Specialty Start Date End Date Laura Davies MD [address] [place] [address] PCP - General Pediatrics 12/08/19 01/31/23 documented as of this encounter
--- OUTSIDE RECORDS SUMMARY | 2024-09-20 11:35 | XMS_ITS | Encounter Summary ---
Author Organization [facility] Address [address] [place] [address] Phone Care Team Providers Care Eeg Tech Name Role Phone Laura Davies MD Primary Care Provider [phone] Encounter Details Date Type Department Care Team (Late st Contact Info) Description 06/27/2011 Documentation [facility] [place] [address] [place] [address] Family Medicine, Physician [address] [place], [place] 338391 Social History Tobacco Use Types Packs/Day Years [...] on filedocumented in this encounter Care Teams Eeg Tech Relationship Specialty Start Date End Date Laura Davies MD [address] [place] [address] PCP - General Pediatrics 12/08/19 01/31/23 documented as of this encounter
--- OUTSIDE RECORDS SUMMARY | 2024-09-20 11:35 | XMS_ITS | Encounter Summary ---
Author Organization [facility] Address [address] [place] [address] Phone Care Team Providers Care Finger Buffs Assembler Name Role Phone Laura Davies MD Primary Care Provider [phone] Encounter Details Date Type Department Care Team (Late st Contact Info) Description 07/11/2012 Documentation [facility] [place] Family Medicine [address] [place] [address] Family Medicine, Physician [address], [place] 987521 Social History Tobacco Use Types Packs/Day Years [...] on filedocumented in this encounter Care Teams Finger Buffs Assembler Relationship Specialty Start Date End Date Laura Davies MD [address] [place] [address] PCP - General Pediatrics 12/08/19 01/31/23 documented as of this encounter
--- OUTSIDE RECORDS SUMMARY | 2024-09-20 11:35 | XMS_ITS | Encounter Summary ---
Author Organization [facility] Address [address] [place] [address] Phone Care Team Providers Care Hims Coder Name Role Phone Laura Davies MD Primary Care Provider [phone] Encounter Details Date Type Department Care Team (Late st Contact Info) Description 09/18/2014 Documentation [facility] [place] Family Medicine [address] [place] [address] Family Medicine, Physician [address] [place], [place] 938231 Social History Tobacco Use Types Packs/Day Years [...] on filedocumented in this encounter Care Teams Hims Coder Relationship Specialty Start Date End Date Laura Davies MD [address] [place] [address] PCP - General Pediatrics 12/08/19 01/31/23 documented as of this encounter
--- OUTSIDE RECORDS SUMMARY | 2024-09-20 11:35 | XMS_ITS | Encounter Summary ---
Author Organization [facility] Address [address] [place] [address] Phone Care Team Providers Care Order Entry Name Role Phone Laura Davies MD Primary Care Provider [phone] Encounter Details Date Type Department Care Team (Late st Contact Info) Description 03/21/2016 Documentation [facility] [place] Family Medicine [address] [place] [address] Family Medicine, Physician [address] [place], [place] 191521 Social History Tobacco Use Types Packs/Day Years [...] on filedocumented in this encounter Care Teams Order Entry Relationship Specialty Start Date End Date Laura Davies MD [address] [place] [address] PCP - General Pediatrics 12/08/19 01/31/23 documented as of this encounter
[2024-09-20 14:03] LABS: Alanine Aminotransferase 24 U/L (0-40); Albumin Level 4.3 g/dL (3.5-5.0); Alkaline Phosphatase 63 U/L (39-117); Anion Gap 13 (12-20); Aspartate Amino Transferase 21 U/L (5-37); Bilirubin Total 1.1 mg/dL (0.0-1.0); Blood Urea Nitrogen 11 mg/dL (9-16); Calcium 9.4 mg/dL (8.4-10.2); Carbon Dioxide 24 mmol/L (22-29); Chloride 105 mmol/L (96-108); Cholesterol 211 mg/dL (<200); Estimated Glomerular Filt Rate > 60; Glucose Fasting 75 mg/dL (60-99); HDL Cholesterol 40 mg/dL (>40); LDL Cholesterol Calculated 160 mg/dL (<100); Potassium 3.9 mmol/L (3.3-5.1); Sodium 138 mmol/L (135-145); Total Protein 8.2 g/dL (6.5-8.0); Triglycerides 59 mg/dL (<150)
== END 2024-09-20 10:21 | disposition home or self-care (01) ==
LOC: HO.HMGCLDS 10:20
PROVIDERS: PCP Nurse Practitioner Family; Visit Provider Nurse Practitioner Family
DX: E78.01 Familial hypercholesterolemia (principal)
CPT/HCPCS: 36415; 80053; 80061

== ENCOUNTER 2024-12-20 15:53 | Outpatient (REF) | payer OTHER, SELFPAY ==
--- OUTSIDE RECORDS SUMMARY | 2024-12-20 15:59 | XMS_ITS | Encounter Summary ---
Author Organization [facility] Address [address] [place] [address] Phone Care Team Providers Care Aircraft Charter Dispatcher Name Role Phone Laura Davies MD Primary Care Provider [phone] Encounter Details Date Type Department Care Team (Late st Contact Info) Description 03/21/2016 Documentation [facility] [place] Family Medicine [address] [place] [address] Family Medicine, Physician [address] [place], [place] 313921 Social History Tobacco Use Types Packs/Day Years [...] on filedocumented in this encounter Care Teams Aircraft Charter Dispatcher Relationship Specialty Start Date End Date Laura Davies MD [address] [place] [address] PCP - General Pediatrics 12/08/19 01/31/23 documented as of this encounter
[2024-12-20 17:54] LABS: Alanine Aminotransferase 20 U/L (0-40); Albumin Level 4.6 g/dL (3.5-5.0); Alkaline Phosphatase 53 U/L (39-117); Anion Gap 13 (12-20); Aspartate Amino Transferase 18 U/L (5-37); Bilirubin Total 1.3 mg/dL (0.0-1.0); Blood Urea Nitrogen 13 mg/dL (9-16); Calcium 9.7 mg/dL (8.4-10.2); Carbon Dioxide 25 mmol/L (22-29); Chloride 106 mmol/L (96-108); Cholesterol 225 mg/dL (<200); Estimated Glomerular Filt Rate > 60; Glucose Fasting 75 mg/dL (60-99); HDL Cholesterol 47 mg/dL (>40); LDL Cholesterol Calculated 162 mg/dL (<100); Potassium 3.9 mmol/L (3.3-5.1); Sodium 140 mmol/L (135-145); Triglycerides 80 mg/dL (<150)
== END 2024-12-20 15:54 | disposition home or self-care (01) ==
LOC: HO.LAB 15:53
PROVIDERS: PCP Nurse Practitioner Family; Visit Provider Nurse Practitioner Family
DX: E78.01 Familial hypercholesterolemia (principal)
CPT/HCPCS: 36415; 80053; 80061

== ENCOUNTER 2025-07-21 15:26 | Outpatient (AMB) | payer OTHER, SELFPAY ==
--- NOTE | 2025-07-21 15:30 | A.OFFPC_ITS ---
Vital Signs 07/21/25 15:31 Height 5 ft 8 in Weight 204 lb BMI 31.0 BP 130/82 Blood Pressure Location Lt brachial Position Sitting Respiration 16 Pulse 84 Pulse Source Pulse Oximeter Pulse Oximetry (%) 100 Oxygen Delivery Method Room Air Intake Visit Reasons: PE Lens Block Gauger Required: No Allergies No Known Allergies Allergy (Verified 07/21/25 15:36) Medication List - Last Reconciled 07/21/25 by AMERICA Smalls No Known Home Meds Tobacco use date assessed: 07/21/25 Dental Screening Dental Screen Date: 07/21/25 Did you have a dental visit in the last 12 months?: No Did you have a dental problem in the last 6 months where you did not have access to dental care?: No Was dental information given to patient?: Patient declined HPI PE HPI Details History of Present Illness The patient is a 24 year old male presenting for a physical examination. He has a history of childhood asthma and reports experiencing wheezing before exercise. He denies severe asthma attacks but confirms intermittent wheezing. Health Maintenance Fasting labs will be ordered for the near future. Social History - The patient is looking for a therapist . Review of Systems - Respiratory: Reports intermittent whee zing, especially before exercise/start of exercising. - Constitutional: Denies fever or chills . - Gastrointestinal: Denies constipation or diarrhea. - Psychiatric: Denies suicidal or homici macho ideation. denies any cp Physical Exam General: Cooperative, healthy appearing, comfortable, no acute distress and well developed Orientation: Patient oriented x3 Limitations: No limitations Head: Normal to inspection Ears: Hearing grossly normal bilaterally Nose: Normal external nose present Face and sinus: Normal facial exam Eyes: Appearance normal, both eyes and all related structures Neck: Normal visual inspection and Yes full ROM Respiratory: Normal respiratory effort and able to speak in complete sentences. Clear to auscultation bilaterally Cardiovascular: Regular rate and rhythm. Normal S1 and S2 GI: Normal to inspection. Soft to palpation and nontender : Testicles without masses/lesions and no hernias appreciated Skin: No rashes or lesions noted Neuro: Patient oriented x3 Extremities: Normal to inspection Results Plan 1. Asthma The patient will be started on albuterol to use as needed. He was advised to make contact if he uses it too frequently (more than twice a week), as a preventative medication may be necessary. Pulmonary function tests (PFTs) will be obtained to establish a baseline. 2. Mental Health The patient is seeking a therapist, and a referral will be provided to a behavioral health staff member. 3. Encounter for general adult medical e xamination with abnormal findings Z00.01 Discussion Notes I discussed the patient's history of childhood asthma and current experience of wheezing before exercise. I will prescribe albuterol and have advised him to contact me if he begins using it too frequently, at which point a preventative medication will be considered. We will also obtain PFTs to assess his current status. Additionally, the patient expressed that he is looking for a therapist, and I will have our behavioral health staff speak with him. I also recommended that he obtain fasting labs in the near future. Patient Instructions - Start using the albuterol inhaler as p rescribed. - Contact the office if you find yoursel f using the inhaler too often (twice a week or more), as we may need to add a preventative medicine. - We will schedule you for a breathing t est (PFT). - Our behavioral health staff will conta ct you to help you find a therapist. - Please get fasting lab work done in th e near future. 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 1. Little interest or pleasure in doing things: not at all 2. Feeling down, depressed, or hopeless: not at all 3. Trouble falling or staying asleep, or sleeping too much: not at all 4. Feeling tired or having little energy: not at all 5. Poor appetite or overeating: not at all 6. Feeling bad about yourself - or that you are a failure or have let yourself or your family down: several days 7. Trouble concentrating on things, such as reading the newspaper or watching television: not at all 8. Moving or speaking so slowly that other people could have noticed. Or the op posite - being so fidgety or restless that you have been moving around a lot more than usual: not at all 9. Thoughts that you would be better off or of hurting yourself in some way: not at all Total score: 1 Depression Screening Interpretation: Negative Depression Screening Done: Yes Source: Developed by Drs. Deandre Ordoñez, Marie Ferrara, Ronald Welch and colleagues, with an educational italo from [employer]. Thrive Questionnaire Date Thrive assessed: 07/11/24 I am a: Patient What is your living situation today?: I have a steady place to live Within the past 12 months, did the food you bought not last and you didn't have the money to get more?: Never true Within the past 12 months, did you worry whether your food would run out before you got money to buy more?: Never true Do you have trouble paying for medicines?: No Do you have trouble getting transportation to medical appointments?: No Do you have trouble paying your heating and electricity bill?: No Do you have trouble taking care of your child, family member or friend?: No Do you have trouble with day-to-day activities such as bathing, preparing meals, shopping, managing finances, etc.?: No Are you currently unemployed and looking for a job?: No Are you interested in more education?: Yes Please select the resources that you would like help with: Education Currently or been in a relationship where the following occur: No concerns reported THRIVE Score: 0 AUDIT C Alcohol Use Questionnaire (AUDIT-C) 1. How often do you have a drink containing alcohol?: 2-4 times a month 2. How many drinks containing alcohol do you have on a typical day when you are drinking?: 1 or 2 3. How often do you have six or more drinks on one occasion?: Less than monthly Total Score: 3 Score Reviewed/Action Taken: Yes CHOCO-7 AMB Questionnaire CHOCO-7 Date CHCOO - 7 assessed: 07/21/25 Feeling nervous, anxious, or on edge: 0 = Not at all Not being able to stop or control worryin = Not at all Worrying too much about different things: 0 = Not at all Trouble relaxin = Several days Being so restless that it is hard to sit still: 0 = Not at all Becoming easily annoyed or irritable: 0 = Not at all Feeling afraid as if something awful might happen: 0 = Not at all Total CHOCO-7 score (0-4 normal; 5-9 mild; 10-14 moderate; 15-21 severe): 1 Source: Developed by Drs. Deandre Ordoñez, Marie Ferrara, Ronald Welch and colleagues, with an educational italo from [employer]. CHOCO-7 Assessment Billing CHOCO-7 Assessment Tool: CHOCO-7 Assessment 36325 Physical exam (Primary Care) Vital Signs: Last Vital Signs Pulse 84 07/21/25 15:31 Resp 16 07/21/25 15:31 BP 130/82 07/21/25 15:31 Pulse Ox 100 07/21/25 15:31 Oxygen Delivery Method Room Air 07/21/25 15:31 BMI result Body Mass Index 31.0 Tobacco/Smoking Status: Tobacco use Status Tobacco use date assessed 07/21/25 07/21/25 15:35 Patient Tobacco Use Status Never used Tobacco 07/21/25 15:35 e-Cigarette/Vaping Use Never Used 07/21/25 15:35 PHQ-9: PHQ-9 Score PHQ-9: Total score 1 07/21/25 15:35 Depression Screening Interpretation: Negative Thrive Assessment: Date of Thrive Assessment Date Thrive assessed 07/11/24 07/21/25 15:35 Currently or been in a relationship where the following occur: No concerns reported Coding Level of Care Code Est Pt Level 3 (10164) Est Pt Prev Care 18-39y(70463) Diagnoses Physical exam Z00.00 Asthma J45.909 Additional Codes CHOCO-7 Assessment Billing - CHOCO-7 Assessment Tool: CHOCO-7 Assessment 09796 ([id number]) Assessment & Plan Assessment & Plan (1) Physical exam: Code(s): Z00.00 - Encounter for general adult medical examination without abnormal f indings Category: Medical (2) Asthma: Code(s): J45.909 - Unspecified asthma, uncomplicated Category: Medical Plan . Orders: Orders Lipid Panel Today Z00.00 - Encounter for general adult medical examination without abnormal findings PFT pulmonary function test Today J45.909 - Unspecified asthma, uncomplicated Complete Blood Count Auto Diff Today Z00.00 - Encounter for general adult medical examination without abnormal findings Comprehensive [place]. Panel Fast Today Z00.00 - Encounter for general adult medical examination without abnormal findings TSH reflex Free T4 Today Z00.00 - Encounter for general adult medical examination without abnormal findings UA CC w/rflx Micro + Cult Today Z00.00 - Encounter for general adult medical examination without abnormal findings Medications: New albuterol sulfate 90 mcg/actuation (Ventolin HFA) 1 inh inhalation QID PRN 8.5 grams 0RF shortness of breath or wheezing
[2025-07-21 15:31] VITALS: BP 130/82; PULSE 84; RESP 16; O2SAT 100; BMI 31.0
--- OUTSIDE RECORDS SUMMARY | 2025-07-21 17:31 | XMS_ITS | Encounter Summary ---
Author Organization [facility] Address [address] [place] [address] Phone Care Team Providers Care Epic Cupid Analyst Name Role Phone Laura Davies MD Primary Care Provider [phone] Encounter Details Date Type Department Care Team (Late st Contact Info) Description 10/24/2016 Documentation [facility] [place] [address] [place] [address] Family Medicine, Physician [address] [place], [place] [address]26961 Social History Tobacco Use Types Packs/Day Years [...] on filedocumented in this encounter Care Teams Epic Cupid Analyst Relationship Specialty Start Date End Date Laura Davies MD [address] [place] [address] PCP - General Pediatrics 12/08/19 01/31/23 documented as of this encounter
--- OUTSIDE RECORDS SUMMARY | 2025-07-21 17:31 | XMS_ITS | Encounter Summary ---
Author Organization [facility] Address [address] [place] [address] Phone Care Team Providers Care Bobtail Driver Name Role Phone Laura Davies MD Primary Care Provider [phone] Encounter Details Date Type Department Care Team (Late st Contact Info) Description 10/20/2014 Documentation [facility] [place] [address] [place] [address] Family Medicine, Physician [address] [place], [place] 324271 Social History Tobacco Use Types Packs/Day Years [...] on filedocumented in this encounter Care Teams Bobtail Driver Relationship Specialty Start Date End Date Laura Davies MD [address] [place] [address] PCP - General Pediatrics 12/08/19 01/31/23 documented as of this encounter
--- OUTSIDE RECORDS SUMMARY | 2025-07-21 17:31 | XMS_ITS | Encounter Summary ---
Author Organization [facility] Address [address] [place] [address] Phone Care Team Providers Care Campaign Associate Name Role Phone Laura Davies MD Primary Care Provider [phone] Encounter Details Date Type Department Care Team (Late st Contact Info) Description 11/30/2009 Documentation [facility] [place] Medicine [address] [place] [address] Family Medicine, Physician [address] [place], [place] 861271 Social History Tobacco Use Types Packs/Day Years [...] on filedocumented in this encounter Care Teams Campaign Associate Relationship Specialty Start Date End Date Laura Davies MD [address] [place] [address] PCP - General Pediatrics 12/08/19 01/31/23 documented as of this encounter
--- OUTSIDE RECORDS SUMMARY | 2025-07-21 17:31 | XMS_ITS | Encounter Summary ---
Author Organization [facility] Address [address] [place] [address] Phone Care Team Providers Care Foundry Molder Name Role Phone Laura Davies MD Primary Care Provider [phone] Encounter Details Date Type Department Care Team (Late st Contact Info) Description 06/27/2011 Documentation [facility] [place] [address] [place] [address] Family Medicine, Physician [address] [place], [place] 415751 Social History Tobacco Use Types Packs/Day Years [...] on filedocumented in this encounter Care Teams Foundry Molder Relationship Specialty Start Date End Date Laura Davies MD [address] [place] [address] PCP - General Pediatrics 12/08/19 01/31/23 documented as of this encounter
--- OUTSIDE RECORDS SUMMARY | 2025-07-21 17:31 | XMS_ITS | Encounter Summary ---
Author Organization [facility] Address [address] [place] [address] Phone Care Team Providers Care Trust Administrator Name Role Phone Laura Davies MD Primary Care Provider [phone] Encounter Details Date Type Department Care Team (Late st Contact Info) Description 07/11/2012 Documentation [facility] Family Medicine [address] [place] [address] Family Medicine, Physician [address] [place], [place] 148211 Social History Tobacco Use Types Packs/Day Years [...] on filedocumented in this encounter Care Teams Trust Administrator Relationship Specialty Start Date End Date Laura Davies MD [address] [place] [address] PCP - General Pediatrics 12/08/19 01/31/23 documented as of this encounter
--- OUTSIDE RECORDS SUMMARY | 2025-07-21 17:31 | XMS_ITS | Encounter Summary ---
Author Organization [facility] Address [address] [place] [address] Phone Care Team Providers Care Ditch Cleaner Name Role Phone Laura Davies MD Primary Care Provider [phone] Encounter Details Date Type Department Care Team (Late st Contact Info) Description 09/18/2014 Documentation [facility] [place] Family Medicine [address] [place] [address] Family Medicine, Physician [address] [place], [place] [address] Social History Tobacco Use Types Packs/Day Years [...] on filedocumented in this encounter Care Teams Ditch Cleaner Relationship Specialty Start Date End Date Laura Davies MD [address] [place] [address] PCP - General Pediatrics 12/08/19 01/31/23 documented as of this encounter
--- OUTSIDE RECORDS SUMMARY | 2025-07-21 17:31 | XMS_ITS | Encounter Summary ---
Author Organization [facility] Address [address] [place] [address] Phone Care Team Providers Care Perfume And Toilet Water Maker Name Role Phone Laura Davies MD Primary Care Provider [phone] Encounter Details Date Type Department Care Team (Late st Contact Info) Description 07/11/2012 Documentation [place] Family Medicine [address] [place] [address] Family Medicine, Physician [address] [place], [place] 849451 Social History Tobacco Use Types Packs/Day Years [...] on filedocumented in this encounter Care Teams Perfume And Toilet Water Maker Relationship Specialty Start Date End Date Laura Davies MD [address] [place] [address] PCP - General Pediatrics 12/08/19 01/31/23 documented as of this encounter
--- OUTSIDE RECORDS SUMMARY | 2025-07-21 17:31 | XMS_ITS | Clinical Summary ---
Author Organization [facility] Address [address] [place] [address] Phone Care Team Providers Care Company Controller Name Role Phone Unavailable Primary Care Provider [...] mellitus Maternal Grandfather Materna l grandfather: Sudden /HI under age 55, Maternal Grandmother Materna l grandmother: Alive and well Mother Alive Mother: Alive a nd well Other No family histo ry of *CVA/Stroke, Family history of *Dental caries, Family history of *Heart Disease Paternal Grandfather Paterna l grandfather: Diabetes mellitus, Sudden /HI under age 55 Paternal Grandmother Paterna l [...] 100 11/26/2020 1:58 PM EDT Temperature 36.2 C (97.1 F) 11/26/2020 1:58 PM EDT Respiratory Rate - - Oxygen Saturation - [...] 09/02/2003, Additional history exists Influenza Vaccines (#1) 2025 12/15/19 21, 05/03/2019, 04/04/2017, Additional history exists COVID-19 Vaccine ( season) 2025 07/29/2021, 11/15/2020, 10/24/2020 HIB Vaccines Completed 12/14/2001, [...]
--- OUTSIDE RECORDS SUMMARY | 2025-07-21 17:31 | XMS_ITS | Encounter Summary ---
Author Organization [facility] Address [address] [place] [address] Phone Care Team Providers Care Radiologic Technologist Chief Name Role Phone Laura Davies MD Primary Care Provider Encounter Details Date Type Department Care Team (Late st Contact Info) Description 09/05/2012 Documentation [facility] [place] [address] [place] [address] Family Medicine, Physician [address] [place], [place] [address] Social History Tobacco Use Types Packs/Day Years [...] on filedocumented in this encounter Care Teams Radiologic Technologist Chief Relationship Specialty Start Date End Date Laura Davies MD [address] [place] [address] PCP - General Pediatrics 12/08/19 01/31/23 documented as of this encounter
--- OUTSIDE RECORDS SUMMARY | 2025-07-21 17:31 | XMS_ITS | Encounter Summary ---
Author Organization [facility] Address [address] [place] [address] Phone Care Team Providers Care It Systems Analyst Name Role Phone Laura Davies MD Primary Care Provider [phone] Encounter Details Date Type Department Care Team (Late st Contact Info) Description 01/06/2011 Documentation [facility] [place] [address] [place] [address] Family Medicine, Physician [address] [place], [place] 160441 Social History Tobacco Use Types Packs/Day Years [...] on filedocumented in this encounter Care Teams It Systems Analyst Relationship Specialty Start Date End Date Laura Davies MD [address] [place] [address] PCP - General Pediatrics 12/08/19 01/31/23 documented as of this encounter
--- OUTSIDE RECORDS SUMMARY | 2025-07-21 17:31 | XMS_ITS | Encounter Summary ---
Author Organization [facility] Address [address] [place] [address] Phone Care Team Providers Care Dipper Machine Operator Name Role Phone Laura Davies MD Primary Care Provider [phone] Encounter Details Date Type Department Care Team (Late st Contact Info) Description 09/04/2014 Documentation [facility] [place] [address] [place] [address] Family Medicine, Physician [address] [place], [place] 277941 Social History Tobacco Use Types Packs/Day Years [...] on filedocumented in this encounter Care Teams Dipper Machine Operator Relationship Specialty Start Date End Date Laura Davies MD [address] [place] [address] PCP - General Pediatrics 12/08/19 01/31/23 documented as of this encounter
--- OUTSIDE RECORDS SUMMARY | 2025-07-21 17:31 | XMS_ITS | Clinical Summary ---
Author Organization [facility] Address [address] [place] [address] Care Team Providers Care Scrap Worker Name Role Phone Unavailable Primary Care Provider Unavailabl e Allergies No known active allergies Medications ibuprofen (MOTRIN) 600 MG tablet Take 1 tablet (600 mg total) by mouth 3 (three) times a day as needed for mild pain (pain). Take with food as this may upset your stomach 20 tablet 1 Active lidocaine (PROZENA) 4 % patch Place 1 patch on the skin daily. Apply for 12 hours, remove for 12 hours 6 patch 1 Active methocarbamol (ROBAXIN) 750 MG tablet Take 1 tablet (750 mg total) by mouth 4 times daily (every 6 hours) as needed for muscle spasms. Do not drink, drive or operate heavy machinery while taking this medication as it may make you drowsy 12 tablet 1 Active Social History Tobacco Use Types Packs/Day Years Used Date Smoking Tobacco: Never Assessed Sex and Gender Information Value Date Recorded Sex Assigned at Not on file Legal Sex Male 1:52 PM EDT Gender Identity Not on file Sexual Orientation Not on file Last Filed Vital Signs Vital Sign Reading Time Taken Comments Blood Pressure 135/75 02/27/2021 12:17 PM EDT Pulse 92 02/27/2021 12:17 PM EDT Temperature 37.1 C (98.8 F) 02/27/2021 12:17 PM EDT Respiratory Rate 16 02/27/2021 12:17 PM EDT [...] - 19+ 3-dose series) 12/19/2018 Influenza Vaccine 02/21/2025 COVID-19 Vaccine (1 - 2024-2 6 season) 2025 Pneumococcal Vaccine: Pediat gabby (0-5 Years) and At-Risk Patients (6 to 49 Years) Aged Out No longer eligible b ased on patient's age to complete this topic Insurance on file
--- OUTSIDE RECORDS SUMMARY | 2025-07-21 17:31 | XMS_ITS | Encounter Summary ---
Author Organization [facility] Address [address] [place] [address] Phone Care Team Providers Care Professor Of Environmental Studies Name Role Phone Laura Davies MD Primary Care Provider Encounter Details Date Type Department Care Team (Late st Contact Info) Description 09/05/2014 Documentation [facility] [place] [address] [place] [address] Family Medicine, Physician [address] [place], [place] 443181 Social History Tobacco Use Types Packs/Day Years [...] on filedocumented in this encounter Care Teams Professor Of Environmental Studies Relationship Specialty Start Date End Date Laura Davies MD [address] [place] [address] PCP - General Pediatrics 12/08/19 01/31/23 documented as of this encounter
--- OUTSIDE RECORDS SUMMARY | 2025-07-21 17:31 | XMS_ITS | Encounter Summary ---
Author Organization [facility] Address [address] [place] [address] Phone Care Team Providers Care Carving Machine Operator Name Role Phone Laura Davies MD Primary Care Provider [phone] Encounter Details Date Type Department Care Team (Late st Contact Info) Description 03/21/2016 Documentation [facility] [place] [address] [place] [address] Family Medicine, Physician [address] [place], [place] [address]441 Social History Tobacco Use Types Packs/Day Years [...] on filedocumented in this encounter Care Teams Carving Machine Operator Relationship Specialty Start Date End Date Laura Davies MD [address] [place] [address] PCP - General Pediatrics 12/08/19 01/31/23 documented as of this encounter
--- OUTSIDE RECORDS SUMMARY | 2025-07-21 17:31 | XMS_ITS | Encounter Summary ---
Author Organization [facility] Address [address] [place] [address] Phone Care Team Providers Care Service Station Console Operator Name Role Phone Laura Davies MD Primary Care Provider [phone] Encounter Details Date Type Department Care Team (Late st Contact Info) Description 09/10/2014 Documentation [facility] [place] [address] [place] [address] Family Medicine, Physician [address] [place], [place] 290801 Social History Tobacco Use Types Packs/Day Years [...] on filedocumented in this encounter Care Teams Service Station Console Operator Relationship Specialty Start Date End Date Laura Davies MD [address] [place] [address] PCP - General Pediatrics 12/08/19 01/31/23 documented as of this encounter
--- OUTSIDE RECORDS SUMMARY | 2025-07-21 17:31 | XMS_ITS | Encounter Summary ---
Author Organization [facility] Address [address] [place] [address] Phone Care Team Providers Care Elevator Operator Freight Name Role Phone Laura Davies MD Primary Care Provider [phone] Encounter Details Date Type Department Care Team (Late st Contact Info) Description 03/10/2014 Documentation [facility] [place] [address] [place] [address] Family Medicine, Physician [address] [place], [place] [address] Social History Tobacco Use Types Packs/Day Years [...] on filedocumented in this encounter Care Teams Elevator Operator Freight Relationship Specialty Start Date End Date Laura Davies MD [address] [place] [address] PCP - General Pediatrics 12/08/19 01/31/23 documented as of this encounter
--- OUTSIDE RECORDS SUMMARY | 2025-07-21 17:31 | XMS_ITS | Encounter Summary ---
Author Organization [facility] Address [address] [place] [address] Phone Care Team Providers Care Loop Drier Operator Name Role Phone Laura Davies MD Primary Care Provider Encounter Details Date Type Department Care Team (Late st Contact Info) Description 03/09/2017 Conversion Encounter [facility] [address] [place] [address] Social History Tobacco Use Types Packs/Day Years [...] on filedocumented in this encounter Care Teams Loop Drier Operator Relationship Specialty Start Date End Date Laura Davies MD [address] [place] [address] PCP - General Pediatrics 12/08/19 01/31/23 documented as of this encounter
== END 2025-07-21 15:54 | disposition home or self-care (01) ==
LOC: HO.HMCC 15:26
PROVIDERS: PCP Nurse Practitioner Family; Visit Provider Nurse Practitioner Family
DX: Z00.00 Encounter for general adult medical examination without abnormal findings (principal); J45.909 Unspecified asthma, uncomplicated

== ENCOUNTER → 2025-07-21 15:26 | Outpatient (BNVA) | payer OTHER, SELFPAY | PROVIDERS: PCP Nurse Practitioner Family; Visit Provider Nurse Practitioner Family | DX: Z00.01 Encounter for general adult medical examination with abnormal findings (principal); J45.909 Unspecified asthma, uncomplicated; Z13.31 Encounter for screening for depression; Z13.39 Encounter for screening examination for other mental health and behavioral disorders | CPT/HCPCS: 96127; 99212; 99395 ==

== ENCOUNTER 2025-07-22 07:20 | Outpatient (REF) | payer OTHER, SELFPAY ==
[2025-07-22 07:31] LABS: MANUAL DIFF FLAG NO
[2025-07-22 08:01] LABS: Hematocrit 46.2 % (42.0-52.0); Hemoglobin 14.7 g/dl (14.0-18.0); Imm Gran Abs Auto 0.04 X10*3/uL (0.00-0.03); Imm Gran Pct Auto 0.5 % (0.0-0.4); Lymphocytes Absolute Auto 3.0 X10*3/uL (1.2-4.9); Mean Corpuscular HGB Conc 31.8 g/dl (31.0-36.0); Mean Corpuscular Hemoglobin 27.2 pg (27.0-33.0); Mean Corpuscular Volume 85.4 fL (80.0-98.0); NRBC Abs Auto 0.000 X10*3/uL (0.0-0.012); NRBC Pct Auto 0.0 /100WBC (0.0-0.2); Platelet Count 301 X10*3/uL (160-400); Red Blood Count 5.41 X10*6/uL (4.60-5.80); White Blood Count 8.9 X10*3/uL (4.8-10.8)
[2025-07-22 08:53] LABS: Appearance Urine Clear; Glucose Urine UA Negative (Negative); PH 6.0 (5.0-9.0); Specific Gravity - Urine 1.025 (1.005-1.025)
--- OUTSIDE RECORDS SUMMARY | 2025-07-22 09:01 | XMS_ITS | Encounter Summary ---
Author Organization [facility] Address [address] [place] [address] Phone Care Team Providers Care Licensed Psychologist Director Name Role Phone Laura Davies MD Primary Care Provider Encounter Details Date Type Department Care Team (Late st Contact Info) Description 03/10/2014 Documentation [facility] [place] Medicine [address] [place] [address] Family Medicine, Physician [address] [place], [place] [address] Social History Tobacco Use Types Packs/Day Years [...] on filedocumented in this encounter Care Teams Licensed Psychologist Director Relationship Specialty Start Date End Date Laura Davies MD [address] [place] [address] PCP - General Pediatrics 12/08/19 01/31/23 documented as of this encounter
--- OUTSIDE RECORDS SUMMARY | 2025-07-22 09:01 | XMS_ITS | Encounter Summary ---
Author Organization [facility] Address [address] [place] [address] Phone Care Team Providers Care Vice President Lending Name Role Phone Laura Davies MD Primary Care Provider [phone] Encounter Details Date Type Department Care Team (Late st Contact Info) Description 06/27/2011 Documentation [facility] [place] [address] [place] [address] Family Medicine, Physician [address] [place], [place] [address]191 Social History Tobacco Use Types Packs/Day Years [...] on filedocumented in this encounter Care Teams Vice President Lending Relationship Specialty Start Date End Date Laura Davies MD [address] [place] [address] PCP - General Pediatrics 12/08/19 01/31/23 documented as of this encounter
--- OUTSIDE RECORDS SUMMARY | 2025-07-22 09:01 | XMS_ITS | Encounter Summary ---
Author Organization [facility] Address [address] [place] [address] Phone Care Team Providers Care Arcade Technician Name Role Phone Laura Davies MD Primary Care Provider [phone] Encounter Details Date Type Department Care Team (Late st Contact Info) Description 09/05/2012 Documentation [facility] [place] [address] [place] [address] Family Medicine, Physician [address] [place], [place] [address] Social History Tobacco Use Types Packs/Day Years [...] on filedocumented in this encounter Care Teams Arcade Technician Relationship Specialty Start Date End Date Laura Davies MD [address] [place] [address] PCP - General Pediatrics 12/08/19 01/31/23 documented as of this encounter
--- OUTSIDE RECORDS SUMMARY | 2025-07-22 09:01 | XMS_ITS | Encounter Summary ---
Author Organization [facility] Address [address] [place] [address] Phone Care Team Providers Care Brand Marketing Coordinator Name Role Phone Laura Davies MD Primary Care Provider [phone] Encounter Details Date Type Department Care Team (Late st Contact Info) Description 07/11/2012 Documentation [facility] [place] [address] [place] [address] Family Medicine, Physician [address] [place], [place] [address]191 Social History Tobacco Use Types Packs/Day Years [...] on filedocumented in this encounter Care Teams Brand Marketing Coordinator Relationship Specialty Start Date End Date Laura Davies MD [address] [place] [address] PCP - General Pediatrics 12/08/19 01/31/23 documented as of this encounter
--- OUTSIDE RECORDS SUMMARY | 2025-07-22 09:01 | XMS_ITS | Encounter Summary ---
Author Organization [facility] Address [address] [place] [address] Phone Care Team Providers Care Supervisor Spinning Name Role Phone Laura Davies MD Primary Care Provider [phone] Encounter Details Date Type Department Care Team (Late st Contact Info) Description 10/24/2016 Documentation [facility] [place] [address] [place] [address] Family Medicine, Physician [address] [place], [place] [address]781 Social History Tobacco Use Types Packs/Day Years [...] on filedocumented in this encounter Care Teams Supervisor Spinning Relationship Specialty Start Date End Date Laura Davies MD [address] [place] [address] PCP - General Pediatrics 12/08/19 01/31/23 documented as of this encounter
--- OUTSIDE RECORDS SUMMARY | 2025-07-22 09:01 | XMS_ITS | Encounter Summary ---
Author Organization [facility] Address [address] [place] [address] Phone Care Team Providers Care Field Crop Harvest Contractor Name Role Phone Laura Davies MD Primary Care Provider [phone] Encounter Details Date Type Department Care Team (Late st Contact Info) Description 09/04/2014 Documentation [facility] [place] Family Medicine [address] [place] [address] Family Medicine, Physician [address] [place], [place] [address] Social History Tobacco Use Types Packs/Day Years [...] on filedocumented in this encounter Care Teams Field Crop Harvest Contractor Relationship Specialty Start Date End Date Laura Davies MD [address] [place] [address] PCP - General Pediatrics 12/08/19 01/31/23 documented as of this encounter
--- OUTSIDE RECORDS SUMMARY | 2025-07-22 09:01 | XMS_ITS | Encounter Summary ---
Author Organization [facility] Address [address] [place] [address] Phone Care Team Providers Care Hearing Dog Trainer Name Role Phone Laura Davies MD Primary Care Provider [phone] Encounter Details Date Type Department Care Team (Late st Contact Info) Description 09/10/2014 Documentation [facility] [place] [address] [place] [address] Family Medicine, Physician [address] [place], [place] [address]161 Social History Tobacco Use Types Packs/Day Years [...] on filedocumented in this encounter Care Teams Hearing Dog Trainer Relationship Specialty Start Date End Date Laura Davies MD [address] [place] [address] PCP - General Pediatrics 12/08/19 01/31/23 documented as of this encounter
--- OUTSIDE RECORDS SUMMARY | 2025-07-22 09:01 | XMS_ITS | Encounter Summary ---
Author Organization [facility] Address [address] [place] [address] Phone Care Team Providers Care Dental Tech Name Role Phone Laura Davies MD Primary Care Provider [phone] Encounter Details Date Type Department Care Team (Late st Contact Info) Description 10/20/2014 Documentation [facility] [place] [address] [place] [address] Family Medicine, Physician [address] [place], [place] [address] Social History Tobacco Use Types Packs/Day Years [...] on filedocumented in this encounter Care Teams Dental Tech Relationship Specialty Start Date End Date Laura Davies MD [address] [place] [address] PCP - General Pediatrics 12/08/19 01/31/23 documented as of this encounter
--- OUTSIDE RECORDS SUMMARY | 2025-07-22 09:01 | XMS_ITS | Clinical Summary ---
Author Organization [facility] Address [address] [place] [address] Phone Care Team Providers Care Grant Writer Name Role Phone Unavailable Primary Care Provider [...] mellitus Maternal Grandfather Materna l grandfather: Sudden /OK under age 55, Maternal Grandmother Materna l grandmother: Alive and well Mother Alive Mother: Alive a nd well Other No family histo ry of *CVA/Stroke, Family history of *Dental caries, Family history of *Heart Disease Paternal Grandfather Paterna l grandfather: Diabetes mellitus, Sudden /OK under age 55 Paternal Grandmother Paterna l [...]
--- OUTSIDE RECORDS SUMMARY | 2025-07-22 09:01 | XMS_ITS | Encounter Summary ---
Author Organization [facility] Address [address] [place] [address] Phone Care Team Providers Care Clinical Data Assistant Name Role Phone Laura Davies MD Primary Care Provider [phone] Encounter Details Date Type Department Care Team (Late st Contact Info) Description 09/18/2014 Documentation [facility] [place] Family [place] [address] [place] [address] Family Medicine, Physician [address] [place], [place] [address] Social History Tobacco Use Types Packs/Day Years [...] on filedocumented in this encounter Care Teams Clinical Data Assistant Relationship Specialty Start Date End Date Laura Davies MD [address] [place] [address] PCP - General Pediatrics 12/08/19 01/31/23 documented as of this encounter
--- OUTSIDE RECORDS SUMMARY | 2025-07-22 09:01 | XMS_ITS | Encounter Summary ---
Author Organization [facility] Address [address] [place] [address] Phone Care Team Providers Care Soft Shoe Dancer Name Role Phone Laura Davies MD Primary Care Provider [phone] Encounter Details Date Type Department Care Team (Late st Contact Info) Description 03/21/2016 Documentation [facility] [place] [address] [place] [address] Family Medicine, Physician [address] [place], [place] [address] Social History Tobacco Use Types Packs/Day Years [...] on filedocumented in this encounter Care Teams Soft Shoe Dancer Relationship Specialty Start Date End Date Laura Davies MD [address] [place] [address] PCP - General Pediatrics 12/08/19 01/31/23 documented as of this encounter
--- OUTSIDE RECORDS SUMMARY | 2025-07-22 09:01 | XMS_ITS | Clinical Summary ---
Author Organization [facility] Address [address] [place] [address] Care Team Providers Care Harness Fitter Name Role Phone Unavailable Primary Care Provider [...]
--- OUTSIDE RECORDS SUMMARY | 2025-07-22 09:01 | XMS_ITS | Encounter Summary ---
Author Organization [facility] Address [address] [place] [address] Phone Care Team Providers Care Factory Supervisor Name Role Phone Laura Davies MD Primary Care Provider [phone] Encounter Details Date Type Department Care Team (Late st Contact Info) Description 01/06/2011 Documentation [facility] [place] [address] [place] [address] Family Medicine, Physician [address] [place], [place] [address] Social History Tobacco Use Types Packs/Day Years [...] on filedocumented in this encounter Care Teams Factory Supervisor Relationship Specialty Start Date End Date Laura Davies MD [address] [place] [address] PCP - General Pediatrics 12/08/19 01/31/23 documented as of this encounter
--- OUTSIDE RECORDS SUMMARY | 2025-07-22 09:01 | XMS_ITS | Encounter Summary ---
Author Organization [facility] Address [address] [place] [address] Phone Care Team Providers Care Molding Manager Name Role Phone Laura Davies MD Primary Care Provider [phone] Encounter Details Date Type Department Care Team (Late st Contact Info) Description 03/09/2017 Conversion Encounter [facility] [address] [place] [address] Social History Tobacco Use Types Packs/Day Years [...] on filedocumented in this encounter Care Teams Molding Manager Relationship Specialty Start Date End Date Laura Davies MD [address] [place] [address] PCP - General Pediatrics 12/08/19 01/31/23 documented as of this encounter
--- OUTSIDE RECORDS SUMMARY | 2025-07-22 09:01 | XMS_ITS | Encounter Summary ---
Author Organization [facility] Address [address] [place] [address] Phone Care Team Providers Care Processing Technologist Name Role Phone Laura Davies MD Primary Care Provider [phone] Encounter Details Date Type Department Care Team (Late st Contact Info) Description 07/11/2012 Documentation [facility] [place] [address] [place] [address] Family Medicine, Physician [address] [place], [place] [address] Social History Tobacco Use Types Packs/Day Years [...] on filedocumented in this encounter Care Teams Processing Technologist Relationship Specialty Start Date End Date Laura Davies MD [address] [place] [address] PCP - General Pediatrics 12/08/19 01/31/23 documented as of this encounter
--- OUTSIDE RECORDS SUMMARY | 2025-07-22 09:01 | XMS_ITS | Encounter Summary ---
Author Organization [facility] Address [address] [place] [address] Phone Care Team Providers Care Electrocardiogram Technician Name Role Phone Laura Davies MD Primary Care Provider [phone] Encounter Details Date Type Department Care Team (Late st Contact Info) Description 11/30/2009 Documentation [facility] [place] Family Medicine [address] [place] [address] Family Medicine, Physician [address] [place], [place] [address] Social History Tobacco Use Types Packs/Day Years [...] on filedocumented in this encounter Care Teams Electrocardiogram Technician Relationship Specialty Start Date End Date aLura Davies MD [address] [place] [address] PCP - General Pediatrics 12/08/19 01/31/23 documented as of this encounter
--- OUTSIDE RECORDS SUMMARY | 2025-07-22 09:01 | XMS_ITS | Encounter Summary ---
Author Organization [facility] Address [address] [place] [address] Phone Care Team Providers Care Custodian Supervisor Name Role Phone Laura Davies MD Primary Care Provider [phone] Encounter Details Date Type Department Care Team (Late st Contact Info) Description 09/05/2014 Documentation [facility] [place] [address] [place] [address] Family Medicine, Physician [address] [place], [place] [address] Social History Tobacco Use Types Packs/Day Years [...] on filedocumented in this encounter Care Teams Custodian Supervisor Relationship Specialty Start Date End Date Laura Davies MD [address] [place] [address] PCP - General Pediatrics 12/08/19 01/31/23 documented as of this encounter
[2025-07-22 09:24] LABS: Alanine Aminotransferase 39 U/L (0-40); Albumin Level 4.5 g/dL (3.5-5.0); Alkaline Phosphatase 51 U/L (39-117); Anion Gap 12 (12-20); Aspartate Amino Transferase 24 U/L (5-37); Blood Urea Nitrogen 14 mg/dL (9-16); Calcium 9.2 mg/dL (8.4-10.2); Carbon Dioxide 27 mmol/L (22-29); Chloride 105 mmol/L (96-108); Cholesterol 225 mg/dL (<200); Estimated Glomerular Filt Rate > 60; HDL Cholesterol 54 mg/dL (>40); Potassium 4.1 mmol/L (3.3-5.1); Sodium 140 mmol/L (135-145); Total Protein 7.7 g/dL (6.5-8.0); Triglycerides 85 mg/dL (<150)
== END 2025-07-22 07:21 | disposition home or self-care (01) ==
LOC: HO.LAB 07:20
PROVIDERS: PCP Nurse Practitioner Family; Visit Provider Nurse Practitioner Family
DX: Z00.00 Encounter for general adult medical examination without abnormal findings (principal)
CPT/HCPCS: 36415; 80053; 80061; 81003; 84443; 85025